=== PATIENT | male | born 1990 | race Caucasian/White ===

== ENCOUNTER 2017-09-10 06:15 | Emergency (ER) | payer OTHER ==
[2017-09-10] MEDS ORDERED: Ketorolac 60 MG/2 ML SDV IM ONE (06:40)
--- NOTE | 2017-09-10 07:55 | EDM.PDOC ---
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 He can move his shoulder but it does hurt in certain motions. He was brought in by his supervisor [employer] for evaluation and treatment. No numbness or tingling in the right upper extremity but he cannot move it pain free at this time. 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.) Associated Symptoms: Reports: No Other Symptoms Rt shoulder Pain Score (Numeric/FACES): 3 - Related Data Allergies Allergy/AdvReac Type Severity Reaction Status Date / Time No Known Allergies Allergy Verified 09/10/17 06:50 Home Meds: Home Meds NK [No Known Home Meds] 09/10/17 [History] Past Medical History - Past Health History Medical/Surgical History: Denies Medical/Surgical History Social & Family History - Family History Family Medical History: Noncontributory - Tobacco Use Smoking Status *Q: Never Smoker - Caffeine Use Caffeine Use: Reports: Coffee, Soda - Recreational Drug Use Recreational Drug Use: No Review of Systems - Review of Systems Review Of Systems: ROS reveals no pertinent complaints other than HPI. ED EXAM, GENERAL - Physical Exam Exam: See Below Exam Limited By: No Limitations General Appearance: Alert, WD/WN, No Apparent Distress Eye Exam: Bilateral Eye: EOMI, Normal Fundi, Normal Inspection Ears: Normal External Exam, Normal Canal, Hearing Grossly Normal, Normal TMs Ear Exam: Bilateral Ear: Auricle Normal, Canal Normal, TM normal Nose: Normal Inspection, Normal Mucosa, No Blood Throat/Mouth: Normal Inspection, Normal Lips, Normal Teeth, Normal Gums, Normal Oropharynx, Normal Voice, No Airway Compromise Head: Atraumatic, Normocephalic Neck: Normal Inspection, Supple, Non-Tender, Full Range of Motion Respiratory/Chest: No Respiratory Distress, Lungs Clear, Normal Breath Sounds, No Accessory Muscle Use, Chest Non-Tender Cardiovascular: Normal Peripheral Pulses, Regular Rate, Rhythm, No Edema, No Gallop, No JVD, No Murmur, No Rub Extremities: Arm Pain (Right shoulder area.), Limited Range of Motion (Right shoulder), Other (Right shoulder x-ray is normal by my initial reading.) Neurological: Alert, Oriented, CN II-XII Intact, Normal Cognition, Normal Gait, Normal Reflexes, No Motor/Sensory Deficits Psychiatric: Normal Affect, Normal Mood Course - Vital Signs Text/Narrative:: Patient had an unremarkable ED course. He had a negative shoulder x-ray. He will be sent home on Ibuprofen 800 mg po q 6 hours, rest, ice, shoulder sling, light duty work this weekend and follow up with PCP or orthopedics in 2 days to see if he is able to go back to work. Last Recorded V/S: Last Vital Signs Temp 36.9 C 09/10/17 06:15 Pulse 63 09/10/17 06:15 Resp 17 09/10/17 06:15 BP 145/89 H 09/10/17 06:15 Pulse Ox 100 09/10/17 06:15 - Orders/Labs/Meds Orders: Active Orders 24 hr Category Date Time Status Shoulder Comp Rt [CR] Stat Exams 09/10/17 06:40 Taken Meds: Medications Discontinued Medications Generic Name Dose Route Start Last Admin Trade Name Seamus PRN Reason Stop Dose Admin Ketorolac Tromethamine 60 mg 09/10/17 06:40 09/10/17 07:01 Toradol IM 09/10/17 06:41 60 mg ONETIME ONE Administration Departure - Departure Time of Disposition: 07:58 Disposition: Home, Self-Care 01 Condition: Good Clinical Impression: Sprain of right shoulder - Discharge Information Referrals: PCP,None [Primary Care Provider] - - My Orders Last 24 Hours: My Active Orders 09/10/17 06:40 Shoulder Comp Rt [CR] Stat - Assessment/Plan Last 24 Hours: My Active Orders 09/10/17 06:40 Shoulder Comp Rt [CR] Stat
--- NOTE | 2017-09-12 11:30 | CR ---
INDICATION: Right shoulder pain. RIGHT SHOULDER: Three views of the right shoulder revealed somewhat cranially offset distal clavicle, raising question of at least a grade 1 strain of the AC joint. This should be correlated clinically. Otherwise, a fracture, dislocation, or other significant bone or joint abnormality was not identified. IMPRESSION: Question grade 1 strain of the AC joint. MTDD
== END 2017-09-10 07:55 | disposition home or self-care (01) ==
LOC: FB.ED 06:15
DX: S43.401A Unspecified sprain of right shoulder joint, initial encounter (principal); X58.XXXA Exposure to other specified factors, initial encounter; Y93.89 Activity, other specified
CPT/HCPCS: 73030; 99000; 99283; J1885; 96372